=== PATIENT | female | born 1950 | race Caucasian/White ===

== ENCOUNTER 2023-10-21 09:44 | Emergency (ER) | payer MEDICARE | END 2023-10-21 11:10 | disposition home or self-care (01) | LOC: NAV ERS 09:44 | DX: J06.9 Acute upper respiratory infection, unspecified (principal); I10 Essential (primary) hypertension; E03.9 Hypothyroidism, unspecified; E78.00 Pure hypercholesterolemia, unspecified; Z79.899 Other long term (current) drug therapy; Z79.82 Long term (current) use of aspirin | CPT/HCPCS: 87635; 87804; 87807; 99283 ==

== ENCOUNTER 2024-07-11 08:54 | Emergency (ER) | payer MEDICARE ==
[2024-07-11] MEDS ORDERED: Sodium Chloride 0.9% 1,000 ML ONE (09:32)
[2024-07-11] MEDS ORDERED: Ondansetron PF 4 MG/2 ML Vial ONE (09:32)
[2024-07-11 09:59] LABS: #Lymphocytes 0.6 thou/uL (1.20-3.40); #Monocytes 0.4 thou/uL (0.11-0.59); %Basophils 0.5 % (0.0-1.0); %Eosinophils 0.3 % (0.0-10.0); %Lymphocytes 7.4 % (21.0-51.0); %Monocytes 5.5 % (0.0-10.0); %Neutrophils 86.4 % (42.0-75.0); Hematocrit 41.2 % (36.0-47.0); Hemoglobin 13.1 g/dL (12.0-16.0); Mean Corpuscular HGB CONC 31.8 g/dL (32.0-36.0); Mean Corpuscular Hemoglobin 30.6 pg (27.0-31.0); Mean Corpuscular Volume 96.2 fl (78.0-98.0); Platelet Count 219 10x3/uL (130-400); RBC Distribution Width 13.1 % (11.5-14.5); Red Blood Cell (RBC) Count 4.28 mill/uL (4.20-5.40); White Blood Cell (WBC) Count 8.1 10x3/uL (4.8-10.8)
[2024-07-11 10:23] LABS: ALT (SGPT) 28 U/L (8-55); AST (SGOT) 47 U/L (5-34); Albumin 3.6 g/dL (3.4-4.8); Alkaline Phosphatase 42 U/L (40-110); Anion Gap 15 mmol/L (10-20); BUN (Urea Nitrogen) 15 mg/dL (9.8-20.1); Bilirubin, Total 0.2 mg/dL (0.2-1.2); Calc. Creatinine Clearance 0 mL/min (70-130); Calcium 9.1 mg/dL (7.8-10.44); Carbon Dioxide 29 mmol/L (23-31); Chloride 98 mmol/L (98-107); Estimated GFR 64; Glucose 115 mg/dL (83-110); Potassium 5.3 mmol/L (3.5-5.1); Protein, Total 6.6 g/dL (5.8-8.1); Sodium 137 mmol/L (136-145)
[2024-07-11 10:59] LABS: Base Excess-Venous 5.5 mmol/L (-2.0 to 3.0); Bicarbonate (HCO3v) 34.1 mmol/L (22.0-28.0); CO2 Tension (PvCO2) 69.2 mmHg (42.0-51.0); Calcium, Ionized 1.15 mmol/L (1.15-1.33); Chloride 99 mmol/L (98-107); Hemoglobin - Calc 12.9 g/dL (12.0-16.0); Potassium 4.3 mmol/L (3.5-5.1); Sodium 140 mmol/L (138-145); T. Carbon Dioxide 36.2 mmol/L (22.0-28.0); vO2 Saturation-calc 35.2 % (60.0-85.0)
[2024-07-11 12:00] LABS: SARS-CoV-2 E Target Positive; SARS-CoV-2 N2 Target Negative; SARS-CoV-2 NAA Rapid Test DETECTED (NotDetected); SARS-CoV-2 RdRP gene Negative
[2024-07-11 13:16] LABS: Bilirubin Negative (Negative); Blood, Urine Negative (Negative); Clarity Clear (Clear); Glucose, Urine (Dipstick) Negative (Negative); Ketone, Urine Negative (Negative); Leukocyte Trace (Negative); Nitrite Positive (Negative); Protein, Urine (Dipstick) Negative (Neg-Trace); Urobilinogen 0.2 mg/dL (Less than 2)
[2024-07-11] MEDS ORDERED: Dexamethasone 4 mg/ml Vial ONE (14:11)
[2024-07-11] MEDS ORDERED: Ketorolac Tromethamine 30 MG (1 mL) VIAL ONE (14:16)
[2024-07-11 14:41] LABS: Bacteria/HPF 4+ HPF (None Seen); CAUTI Indications for Culture Pelvic or flank pain; RBC/HPF 0-3 HPF (0-3); Renal Epithelial 0-3 HPF (None Seen); Squamous Epithelial 0-3 HPF (0-3); Transitional Epithelial 0-3 HPF (None Seen)
[2024-07-11 14:42] LABS: Urine Culture Reflex No No
[2024-07-11] MEDS ORDERED: traMADol HCl 50 MG TAB ONE (16:42)
== END 2024-07-11 17:46 | disposition short-term general hospital (02) ==
LOC: NAV ERS 08:54
DX: U07.1 COVID-19 (principal); I10 Essential (primary) hypertension; E78.00 Pure hypercholesterolemia, unspecified; E03.9 Hypothyroidism, unspecified; Z79.899 Other long term (current) drug therapy
CPT/HCPCS: 71045; 71275; 80053; 81001; 82330; 82435; 82803; 83605; 83880; 84132; 84295; 85014; 85025; 87804 ×2; 96361; 96374; 96375; 99285; J1100; J1885; J2405; J7030; U0002

== ENCOUNTER 2024-08-18 19:55 | Emergency (ER) | payer MEDICARE ==
[2024-08-18] MEDS ORDERED: Sodium Chloride 0.9% 1,000 ML ONE (20:20)
[2024-08-18] MEDS ORDERED: Acetaminophen 325 MG TAB ONE (20:20)
[2024-08-18] MEDS ORDERED: Ondansetron PF 4 MG/2 ML Vial ONE (20:52)
[2024-08-18 20:53] LABS: #Lymphocytes 0.9 thou/uL (1.20-3.40); #Monocytes 0.4 thou/uL (0.11-0.59); #Neutrophils 6.8 thou/uL (1.40-6.50); %Basophils 0.5 % (0.0-1.0); %Eosinophils 0.2 % (0.0-10.0); %Lymphocytes 10.7 % (21.0-51.0); %Monocytes 4.7 % (0.0-10.0); %Neutrophils 83.9 % (42.0-75.0); Hematocrit 43.6 % (36.0-47.0); Hemoglobin 14.7 g/dL (12.0-16.0); Mean Corpuscular HGB CONC 33.7 g/dL (32.0-36.0); Mean Corpuscular Hemoglobin 31.1 pg (27.0-31.0); Mean Corpuscular Volume 92.4 fl (78.0-98.0); Mean Platelet Volume 8.8 fL (7.4-10.4); Platelet Count 200 10x3/uL (130-400); RBC Distribution Width 12.7 % (11.5-14.5); Red Blood Cell (RBC) Count 4.72 mill/uL (4.20-5.40); White Blood Cell (WBC) Count 8.1 10x3/uL (4.8-10.8)
[2024-08-18 20:55] LABS: Bilirubin Negative (Negative); Blood, Urine Small (Negative); Clarity Cloudy (Clear); Glucose, Urine (Dipstick) Negative (Negative); Ketone, Urine Negative (Negative); Leukocyte Moderate (Negative); Nitrite Negative (Negative); Protein, Urine (Dipstick) 100 mg/dL (Neg-Trace); Specific Gravity, Urine 1.015 (1.005-1.030); Urobilinogen 0.2 mg/dL (Less than 2); pH, Urine 7.5 (5.0-9.0)
[2024-08-18 20:57] LABS: Bacteria/HPF Rare-Few HPF (None Seen); CAUTI Indications for Culture Fever or rigors; RBC/HPF 0-3 HPF (0-3); Squamous Epithelial 0-3 HPF (0-3); WBC/HPF Greater than 50 HPF (0-3)
[2024-08-18 20:58] LABS: Urine Culture Reflex Yes Yes
[2024-08-18 21:04] LABS: ALT (SGPT) 38 U/L (8-55); AST (SGOT) 33 U/L (5-34); Albumin 3.5 g/dL (3.4-4.8); Alkaline Phosphatase 59 U/L (40-110); Anion Gap 16 mmol/L (10-20); BUN (Urea Nitrogen) 17 mg/dL (9.8-20.1); Bilirubin, Total 0.2 mg/dL (0.2-1.2); Calc. Creatinine Clearance 0 mL/min (70-130); Calcium 8.7 mg/dL (7.8-10.44); Carbon Dioxide 25 mmol/L (23-31); Chloride 104 mmol/L (98-107); Estimated GFR 51; Globulin 2.7 g/dL (2.4-3.5); Glucose 123 mg/dL (83-110); Potassium 3.9 mmol/L (3.5-5.1); Protein, Total 6.2 g/dL (5.8-8.1); Sodium 141 mmol/L (136-145)
[2024-08-18] MEDS ORDERED: cefTRIAXone (ROCEPHIN) 2 GM VIAL ONE (21:08)
[2024-08-18] MEDS ORDERED: Sodium Chloride 0.9% 100 ML ONE (21:08)
== END 2024-08-18 22:06 | disposition home or self-care (01) ==
LOC: NAV ERS 19:55
DX: N39.0 Urinary tract infection, site not specified (principal); I10 Essential (primary) hypertension; E03.9 Hypothyroidism, unspecified; E78.00 Pure hypercholesterolemia, unspecified; Z79.899 Other long term (current) drug therapy
CPT/HCPCS: 71046; 80053; 81001; 83605; 85025; 87077; 87086; 87186; 87428; 96374; 99283; J0696; J2405; J7030